=== PATIENT | male | born 1945 | race Caucasian/White ===

== ENCOUNTER → 2016-04-26 | Outpatient (CLI) | payer MEDICARE ==
[~2016-04-26] MED LIST: BETAPACE80 MG PO; GABAPENTIN800 MG PO; KLONOPIN2 MG PO; LOVENOX120 MG/0.8 SC; MOEXIPRIL HCL7.5 MG PO; NITRO-TIME6.5 MG PO; PRADAXA150 MG PO; SUBOXONE 8 MG-1 EACH SL; TYLENOL W/CODEIN1 E1 PO; VALIUM5 MG PO; ZOCOR40 MG PO
== END ==
LOC: EMI 07:50
DX: M54.12 Radiculopathy, cervical region (principal); M99.71 Connective tissue and disc stenosis of intervertebral foramina of cervical region
CPT/HCPCS: 72141

== ENCOUNTER 2020-09-19 08:32 | Emergency (ER) | payer MEDICARE ==
[~2020-09-19 08:32] MED LIST changes: +POLYTRIM EYE DR10 ML OS
[2020-09-19] MEDS ORDERED: DELSYM30 MG/5 ML PO (11:12)
== END 2020-09-19 11:20 | disposition home or self-care (01) ==
LOC: ER1 08:32
DX: U07.1 COVID-19 (principal); E11.9 Type 2 diabetes mellitus without complications; I10 Essential (primary) hypertension
CPT/HCPCS: 99283; U0002

== ENCOUNTER → 2021-07-08 | Outpatient (CLI) | payer MEDICARE ==
[~2021-07-08] MED LIST changes: +DELSYM30 MG/5 ML PO
== END ==
LOC: ECHO 08:19
DX: Z01.810 Encounter for preprocedural cardiovascular examination (principal); R94.31 Abnormal electrocardiogram [ECG] [EKG]; I48.91 Unspecified atrial fibrillation; R00.2 Palpitations; R06.02 Shortness of breath; I08.3 Combined rheumatic disorders of mitral, aortic and tricuspid valves
CPT/HCPCS: ECHO; 93306

== ENCOUNTER → 2021-08-11 | Outpatient (CLI) | payer MEDICARE ==
[~2021-08-11] MED LIST changes: +CYCLOBENZAPRINE10 MG PO; +GLUCOPHAGE 500500 MG PO; +ISOSORBIDE MONO30 MG PO; +KLONOPIN0.5 MG PO; +LASIX20 MG PO; +LOPRESSOR 25 MG25 MG PO; +MOEXIPRIL HCL15 MG PO; +PHENERGAN 25 MG25 M1 PO; +ROPINIROLE HCL0.5 MG PO; +VITAMIN B PO; +VITAMIN D2 PO
[2021-08-11 11:18] LABS: HEMOGLOBIN 14.1 gm/dl (14.0-17.5); RED BLOOD COUNT 4.36 M/UL (4.20-5.50); WHITE BLOOD COUNT 6.8 K/UL (4.5-11.0)
[2021-08-11 12:38] LABS: BUN/CREATININE RATIO 24 (0-10)
== END ==
LOC: OPSV2 10:00 → EDSTATUS 10:00 → OPSV2 10:15
PROVIDERS: Orthopaedic Surgery
DX: Z01.818 Encounter for other preprocedural examination (principal); M17.12 Unilateral primary osteoarthritis, left knee
CPT/HCPCS: 71046; 80048; 83036; 85027; 85652; 86140; 93005

== ENCOUNTER → 2021-08-15 | Outpatient (CLI) | payer MEDICARE ==
[~2021-08-15] MED LIST changes: +ELIQUIS2.5 MG PO; +ENDOCET 7.5-321 EACH PO; +SOTALOL80 MG PO; +ZOFRAN 4 MG TAB4 MG PO
[2021-08-15 14:33] LABS: BUN/CREATININE RATIO 26 (0-10)
== END ==
LOC: LAB 13:49
PROVIDERS: Orthopaedic Surgery
DX: Z01.812 Encounter for preprocedural laboratory examination (principal)
CPT/HCPCS: 36415; 80048; 85610; 85730; 86850; 86900; 86901

== ENCOUNTER 2021-08-16 05:20 | Day surgery (SDC) | payer MEDICARE ==
[~2021-08-16] VITALS: Ht 172.7 cm; Wt 116.6 kg
[~2021-08-16 05:20] MED LIST changes: -ELIQUIS2.5 MG PO; -ENDOCET 7.5-321 EACH PO; -SOTALOL80 MG PO; -ZOFRAN 4 MG TAB4 MG PO
[2021-08-16] MEDS ORDERED: ENDOCET 7.5-321 EACH PO (08:25)
[2021-08-16] MEDS ORDERED: ZOFRAN 4 MG TAB4 MG PO (08:25)
[2021-08-16] MEDS ORDERED: ELIQUIS2.5 MG PO (08:25)
[2021-08-16] MEDS ORDERED: CYCLOBENZAPRINE10 MG PO (08:25)
[2021-08-16] MEDS ORDERED: SOTALOL80 MG PO (12:53)
--- NOTE | 2021-08-16 19:00 | NUR ---
THEA HERE TO SEE PATIENT FOR HOSPITALIST CONSULT. PATIENT HAD NOT VOIDED SINCE COMING BACK FROM SURGERY. PATIENT WAS ONLY ABLE TO VOID 40ML. URINE WAS BAILEE IN COLOR. PATIENT C/O "PAIN AND BURNING" WHEN ATTEMPTING TO VOID. DR SIDHU AWARE OF FINDINGS. ORDER RECEIVED TO ANCHOR IZAGUIRRE.
--- NOTE | 2021-08-16 21:25 | NUR ---
BLADDER SCAN PERFORMED ON PATIENT PRIOR TO INSERTING IZAGUIRRE. APPROXIMATELY 300ML NOTED ON SCAN. PATIENT ATTEMPTED TO VOID AGAIN PRIOR TO PLACING IZAGUIRRE, BUT WAS UNABLE TO DO SO. IZAGUIRRE ANCHORED. 275ML OF CLEAR YELLOW URINE NOTED.
[2021-08-17 02:56] LABS: HEMOGLOBIN 12.2 gm/dl (14.0-17.5); RED BLOOD COUNT 3.8 M/UL (4.20-5.50); WHITE BLOOD COUNT 13.1 K/UL (4.5-11.0)
[2021-08-17 03:08] LABS: BUN/CREATININE RATIO 35 (0-10)
== END 2021-08-17 14:30 | disposition home health service (06) ==
LOC: OR 05:20 → EDSTATUS 07:30 → CCU 11:46 → OR 11:53 → CCU 19:42 → OR 08-17 14:30
PROVIDERS: Internal Medicine
DX: M17.12 Unilateral primary osteoarthritis, left knee (principal); G89.18 Other acute postprocedural pain; I11.9 Hypertensive heart disease without heart failure; E78.5 Hyperlipidemia, unspecified; K21.9 Gastro-esophageal reflux disease without esophagitis; E11.40 Type 2 diabetes mellitus with diabetic neuropathy, unspecified; Z91.040 Latex allergy status; Z79.84 Long term (current) use of oral hypoglycemic drugs; Z79.899 Other long term (current) drug therapy
CPT/HCPCS: 73560; 80053; 81001; 82962; 85025; 87086; 97110; 97110-GP-CQ; 97116-GP-CQ; 97162; 97166; 97530; 97530-GP-CQ; 97535; C1713; C1776; J0171; J0690; J0735; J1100; J1170; J1885; J2250; J2274; J2405; J2704; J2795; J3010; J3370

== ENCOUNTER 2021-08-19 14:02 | Inpatient (IN) | payer MEDICARE ==
[~2021-08-19] VITALS: Ht 172.7 cm; Wt 116.6 kg
[~2021-08-19 14:02] MED LIST changes: +ELIQUIS2.5 MG PO; +ENDOCET 7.5-321 EACH PO; +SOTALOL80 MG PO; +ZOFRAN 4 MG TAB4 MG PO
[2021-08-19 15:00] LABS: HEMOGLOBIN 11.9 gm/dl (14.0-17.5); RED BLOOD COUNT 3.66 M/UL (4.20-5.50); WHITE BLOOD COUNT 13.7 K/UL (4.5-11.0)
[2021-08-19] MEDS ORDERED: PHENERGAN 25 MG25 M1 PO (22:04)
[2021-08-20 02:46] LABS: RED BLOOD COUNT 3.43 M/UL (4.20-5.50); WHITE BLOOD COUNT 12.4 K/UL (4.5-11.0)
[2021-08-20 03:00] LABS: BUN/CREATININE RATIO 21 (0-10)
== END 2021-08-20 13:39 | disposition home or self-care (01) | DRG 920 ==
LOC: ER1 14:02 → M/S 16:42 → CDU 16:42 → M/S 20:01
PROVIDERS: Physician Assistant; ADMIT Internal Medicine
DX: L76.82 Other postprocedural complications of skin and subcutaneous tissue (principal); E87.1 Hypo-osmolality and hyponatremia; N17.9 Acute kidney failure, unspecified; E87.2 Acidosis; M25.462 Effusion, left knee; Z20.822 Contact with and (suspected) exposure to COVID-19; Y83.8 Other surgical procedures as the cause of abnormal reaction of the patient, or of later complication, without mention of misadventure at the time of the procedure; E11.9 Type 2 diabetes mellitus without complications; E78.5 Hyperlipidemia, unspecified; I10 Essential (primary) hypertension; Z96.652 Presence of left artificial knee joint; D64.9 Anemia, unspecified; K21.9 Gastro-esophageal reflux disease without esophagitis; I95.9 Hypotension, unspecified; E86.0 Dehydration; E66.01 Morbid (severe) obesity due to excess calories; I48.91 Unspecified atrial fibrillation; Z79.01 Long term (current) use of anticoagulants; Z86.73 Personal history of transient ischemic attack (TIA), and cerebral infarction without residual deficits; Z88.8 Allergy status to other drugs, medicaments and biological substances; Z91.040 Latex allergy status; Z80.9 Family history of malignant neoplasm, unspecified; Z68.39 Body mass index [BMI] 39.0-39.9, adult
CPT/HCPCS: 36415; 71045; 73564; 80048; 80053; 81001; 82009; 82550; 82553; 82962; 83605; 83735; 83880; 84484; 85025; 85652; 86140; 87040; 93005; 93971; 96374; 96375; 99285; J0692; J3370; J7030; J7070; U0002

== ENCOUNTER 2021-08-22 15:37 | Inpatient (IN) | payer MEDICARE ==
[~2021-08-22] VITALS: Ht 172.7 cm; Wt 116.6 kg
[2021-08-22 16:38] LABS: HEMOGLOBIN 11.7 gm/dl (14.0-17.5); RED BLOOD COUNT 3.64 M/UL (4.20-5.50); WHITE BLOOD COUNT 11.2 K/UL (4.5-11.0)
[2021-08-22 17:07] LABS: BUN/CREATININE RATIO 28 (0-10)
[2021-08-23 05:58] LABS: HEMOGLOBIN 10.5 gm/dl (14.0-17.5); RED BLOOD COUNT 3.31 M/UL (4.20-5.50); WHITE BLOOD COUNT 9.1 K/UL (4.5-11.0)
[2021-08-23 06:12] LABS: BUN/CREATININE RATIO 25 (0-10)
[2021-08-23] MEDS ORDERED: PRADAXA150 MG PO (12:02)
[2021-08-23] MEDS ORDERED: ISOSORBIDE MONO30 MG PO (12:04)
[2021-08-23] MEDS ORDERED: MOEXIPRIL HCL15 MG PO (12:05)
--- NOTE | 2021-08-23 15:48 | NUR ---
DR PIPER DID BEDSIDE ASPIRATION ON PATIENTS LEFT KNEE AT 1330. 3MLs OF BLOOD WERE ASPIRATED AND A DRESSING OF 4X4 AND MARIUSZ WRAP APPLIED BY DOCTOR PIPER. BLOOD WAS SENT OFF TO LAB FOR CULTURE AND SENSITIVITY PER DOCTORS ORDER. AT 1529 PATIENTS FAMILY BROUGHT PATIENTS POLAR ICE FROM HOME AND IT WAS APPLIED. SHARAN TO APPLYING POLAR ICE PATIENTS DRESSING FROM [facility] WAS CHANGED. PATIENTS LEG IS WEEPING AND PATIENT IS ON ELEQUIS SANGUINOUS DRAINAGE HAD SOAKED MARIUSZ WRAP ON THE SIDE OF ASPIRATION. 4X4' WERE NOT REMOVED, BUT NEW 4X4's APPLIED ALONG WITH NEW MARIUSZ WRAP. PATIENT CURRENTLY RESTING QUIETLY WITH LEG ELEVATED ON PILLOWS WITH DIS POSABLE LILLIAN AND POLAR ICE IN PLACE. WILL CONTINUE TO MONITOR.
[2021-08-24 06:52] LABS: HEMOGLOBIN 10.5 gm/dl (14.0-17.5); RED BLOOD COUNT 3.29 M/UL (4.20-5.50)
[2021-08-24 07:09] LABS: BUN/CREATININE RATIO 22 (0-10)
[2021-08-25 06:19] LABS: HEMOGLOBIN 11.1 gm/dl (14.0-17.5); RED BLOOD COUNT 3.53 M/UL (4.20-5.50); WHITE BLOOD COUNT 12.3 K/UL (4.5-11.0)
[2021-08-25 06:53] LABS: BUN/CREATININE RATIO 26 (0-10)
[2021-08-25] MEDS ORDERED: ENDOCET 7.5-321 EACH PO (10:35)
--- NOTE | 2021-08-25 17:08 | NUR ---
PATIENT HAVING BOUTS OF NAUSEA THROUGH OUT THE DAY WITH VOMITING. PATIENT GETS PALE AND IS OBVIOUSLY IN DISCOMFORT BEFORE EMESIS. PROVIDER AWARE AND HAS SEEN THE PATIENT. WILL CONTINUE TO MONITOR.
[2021-08-27 04:36] LABS: HEMOGLOBIN 12.2 gm/dl (14.0-17.5); RED BLOOD COUNT 3.81 M/UL (4.20-5.50)
[2021-08-27 04:40] LABS: WHITE BLOOD COUNT 15.4 K/UL (4.5-11.0)
[2021-08-27 04:56] LABS: BUN/CREATININE RATIO 31 (0-10)
[2021-08-27] MEDS ORDERED: PRADAXA150 MG PO (11:26)
--- NOTE | 2021-08-27 12:33 | NUR ---
CALLED AND GAVE REPORT TO STARR AT [facility]. SHE INFORMED ME SHE WOULD NEED TO SPEAK WITH THE TITLE ASSISTANT ABOUT THIS ON SUNDAY AND I INFORMED THEM THAT FRANCHESCA WAS HIS TITLE ASSISTANT.
--- NOTE | 2021-08-27 12:44 | NUR ---
[facility] CALLED AND INFORMED PATIENT WOULD BE GOING HOME TODAY. PER FRANCHESCA THEY WILL BE OUT AT HIS HOUSE TODAY BETWEEN 5 AND 6 TO SET HIM UP.
== END 2021-08-27 13:50 | disposition home health service (06) | DRG 560 ==
LOC: ER1 15:37 → MED SURG 4 20:46 → CDU 20:46 → MED SURG 4 23:56
PROVIDERS: Internal Medicine; Physician Assistant; Physician Assistant Medical; ADMIT Internal Medicine
PROC: 0S9D3ZZ Drainage of Left Knee Joint, Percutaneous Approach (ICD-10-PCS; 2021-08-23)
PROC: 02HV33Z Insertion of Infusion Device into Superior Vena Cava, Percutaneous Approach (ICD-10-PCS; principal; 2021-08-25)
PROC: B548ZZA Ultrasonography of Superior Vena Cava, Guidance (ICD-10-PCS; 2021-08-25)
DX: T84.54XA Infection and inflammatory reaction due to internal left knee prosthesis, initial encounter (principal); I48.20 Chronic atrial fibrillation, unspecified; M00.862 Arthritis due to other bacteria, left knee; L03.116 Cellulitis of left lower limb; Z20.822 Contact with and (suspected) exposure to COVID-19; I10 Essential (primary) hypertension; E78.5 Hyperlipidemia, unspecified; E66.01 Morbid (severe) obesity due to excess calories; Z96.651 Presence of right artificial knee joint; Y83.8 Other surgical procedures as the cause of abnormal reaction of the patient, or of later complication, without mention of misadventure at the time of the procedure; D72.829 Elevated white blood cell count, unspecified; E11.40 Type 2 diabetes mellitus with diabetic neuropathy, unspecified; K59.00 Constipation, unspecified; E86.0 Dehydration; T36.8X5A Adverse effect of other systemic antibiotics, initial encounter; Z86.73 Personal history of transient ischemic attack (TIA), and cerebral infarction without residual deficits; Z79.01 Long term (current) use of anticoagulants; Z68.34 Body mass index [BMI] 34.0-34.9, adult
CPT/HCPCS: 36415; 71045; 73560; 74018; 74019; 74160; 80048; 80053; 80202; 82550; 82553; 82962; 83605; 84484; 85025; 85027; 85652; 86140; 87040; 87070; 87205; 93005; 96365; 96366; 96375; 96376; 97161; 99284; C1751; G0378; J0878; J2270; J2405; J3370; J7070; Q9967

== ENCOUNTER → 2021-10-06 | Outpatient (CLI) | payer MEDICARE ==
[2021-10-06 13:14] LABS: HEMOGLOBIN 11.7 gm/dl (14.0-17.5); RED BLOOD COUNT 3.74 M/UL (4.20-5.50); WHITE BLOOD COUNT 9.3 K/UL (4.5-11.0)
[2021-10-06 13:38] LABS: BUN/CREATININE RATIO 17 (0-10)
== END ==
LOC: LBRF 12:27
PROVIDERS: Psychiatry & Neurology Neurology
DX: Z79.2 Long term (current) use of antibiotics (principal)
CPT/HCPCS: 80053; 82550; 85025; 85652; 86140